=== PATIENT | male | born 1960 | race Caucasian/White ===

== ENCOUNTER → 2019-05-19 | Outpatient (CLI) | payer BC ==
--- NOTE | 2019-05-20 07:23 | RAD ---
PROVIDED CLINICAL HISTORY/REASON FOR EXAM: M25.562 M25.552 Findings: Number of images: 4 Location: Left knee No acute fracture or dislocation. Joint spaces are maintained. No significant joint effusion. Vascular calcifications. Tiny patellar osteophytes. IMPRESSION: No evidence of acute process in the left knee. Electronically signed by: Elder Goins MD 05/20/2019 7:22 AM CDT
--- NOTE | 2019-05-20 07:24 | RAD ---
PROVIDED CLINICAL HISTORY/REASON FOR EXAM: M25.562 M25.552 Findings: Number of images: One Location: Pelvis No acute fracture or dislocation. No focal soft tissue swelling. Partially visualized lower lumbar spondylosis. Sacroiliac joints are unremarkable. Mild left hip joint space narrowing. IMPRESSION: Mild left hip osteoarthritis. No evidence of acute process. Electronically signed by: Elder Goins MD 05/20/2019 7:23 AM CDT
== END ==
LOC: RAD 09:12
PROVIDERS: ATTEND Orthopaedic Surgery
DX: M25.562 Pain in left knee (principal); M16.12 Unilateral primary osteoarthritis, left hip